=== PATIENT | female | born 1965 | race Caucasian/White ===

== ENCOUNTER 2017-02-24 15:29 | Emergency (ER) | payer MEDICAID, OTHER ==
[~2017-02-24] VITALS: Ht 165.1 cm; Wt 135.0 kg
[2017-02-24 15:35] VITALS: Ht 165.1 cm; Wt 135.0 kg
--- NOTE | 2017-02-24 15:58 | ERD ---
ER Documentation Chief Complaint Date/Time DATE: 02/24/17 TIME: 15:56 Chief Complaint FALL ON SIDEWALK THIS AM, BRUISING ON FOREHEAD AND NOSE HPI 51-year-old female presents with a trip and fall on the sidewalk around 1115 this morning complaining of head pain, nasal pain and bilateral ankle pain. She states that part of the sidewalk was not intact and she had an inversion injury to bilateral ankles, she complains of right medial ankle pain, generalized left ankle pain, she has swelling to her forehead. She denies any loss of consciousness, nausea, vomiting or blurry vision. ROS All systems reviewed and are negative except as per history of present illness. Medications Home Meds Active Scripts Ibuprofen* (Motrin*) 600 Mg Tab, 600 MG PO Q6, #30 TAB Prov:CORONA HONG PA-C 02/24/17 Allergies Allergies: Coded Allergies: No Known Allergy (Unverified , 02/24/17) PMhx/Soc Hx Alcohol Use: No Hx Substance Use: No Hx Tobacco Use: No Physical Exam Vitals Vital Signs Date Time Temp Pulse Resp B/P Pulse Ox O2 Delivery O2 Flow Rate FiO2 02/24/17 15:35 97.5 102 20 144/83 97 Physical Exam General: Well-developed, well-nourished. The patient appears in no acute distress. HEENT: Head is normocephalic, scalp is atraumatic, there is a hematoma to the frontal aspect approximately 4 cm, with overlying abrasion, the patient is swelling of the nasal bridge, no hematoma seen. No scleral icterus. Pupils are equal, round, and reactive. Oral mucous membranes are moist. No pharyngeal erythema. Neck: Supple. Nontender. No midline tenderness. Lungs: Clear to auscultation. Normal air movement. Heart: Regular rate and rhythm. S1 and S2 are normal. No murmurs, gallops, or rubs. Abdomen: Soft, nontender, nondistended. Bowel sounds are normoactive. Extremities: Swelling to right medial ankle, she is able to weight-bear partially, she has full range of motion with right ankle flexion and dorsiflexion. Left ankle is full range of motion flexion and dorsiflexion, no swelling, no bony deformities, she is fully weightbearing. Neurologic: Alert and oriented 3. No focal deficits. Skin: Normal turgor. No rash or lesions. Results 24 hrs Current Medications Medications (Trade) Dose Ordered Sig/Víctor Route PRN Reason Start Time Stop Time Status Last Admin Dose Admin Acetaminophen/ Hydrocodone Bitart (Kevin (5/325)) 1 tab ONCE ONCE PO 02/24/17 16:00 02/24/17 16:01 DC 02/24/17 15:55 PROCEDURE: CT Head without contrast. CLINICAL INDICATION: Head trauma with pain TECHNIQUE: The study was performed utilizing a GE 64-slice multidetector CT scanner. Direct spiral axial CT images of the brain were obtained from the vertex to the skull base without contrast. Coronal and sagittal reformat images are provided. The CTDI vol is 44.99 mGy and the DLP is 720.23 mGy-cm. The images were reviewed on a PACS workstation. COMPARISON: No prior studies are available for comparison. FINDINGS: Mild to moderate frontal scalp soft tissue swelling is seen. The ventricles and cortical sulci are within normal limits. The cheatham-white matter differentiation is maintained. No intra or extra-axial fluid collection or mass effect or shift in the midline structures is seen. The visualized paranasal sinuses, mastoid air cells, orbits, and calvarium are unremarkable. IMPRESSION: 1. No acute intracranial pathology. 2. Mild to moderate frontal scalp soft tissue swelling. RPTAT: HPNM Physician Nikolas Date Time Electronically viewed and signed by Physician Nikolas on 02/24/2017 16 :34 PROCEDURE: XR Ankle 3 Views. CLINICAL INDICATION: Ankle pain and trauma TECHNIQUE: AP, oblique and lateral views of the left ankle were performed. COMPARISON: None. FINDINGS: The osseous structures are intact. No destructive bony lesions are observed. Interosseous spaces appear normal. Small plantar calcaneal and Achilles insertion heel spurs are seen. Mild potential soft tissue swelling is seen surrounding the ankle . IMPRESSION: Mild potential soft tissue swelling surrounding the ankle. Ligamentous and tendinous injury is not excluded. If characterization of the ligaments and tendons is needed MRI is recommended. Plantar calcaneal and Achilles insertion heel spurs. If there is high clinical suspicion for bony traumatic injury, further evaluation with CT should be considered. RPTAT: AA .Brian Sims MD, MD Date Time Electronically viewed and signed by .Brian Sims MD, MD on 02/24/2017 18:00 PROCEDURE: XR nasal bones 3 Views CLINICAL INDICATION: Nose pain and trauma TECHNIQUE: AP and bilateral oblique views of the nasal bones were obtained COMPARISON: None available FINDINGS: The osseous structures are intact. No destructive bony lesions are observed. Visualized paranasal sinuses and mastoids are clear. Soft tissues are without gross abnormality. IMPRESSION: No visualized traumatic injury. If there is high clinical suspicion for traumatic injury, further evaluation with CT should be considered. RPTAT: AA .Brian Sims MD, MD Date Time Electronically viewed and signed by .Brian Sims MD, MD on 02/24/2017 17:58 Procedures/MDM ED course: Patient was given Kevin for pain. Patient was placed in a posterior ankle splint, right ankle, she is given crutches to be toe-touch weightbearing. Splint Assessment: Neurovascularly intact post splint placement with good fit. MDM: 51-year-old female presents with a traumatic injury presenting with facial hematoma, nasal hematoma, sprain on the left ankle. Patient has significant swelling, and therefore was placed in a splint to be follow-up with orthopedics. There is no evidence of an Achilles tendon rupture, an acute fracture. CT scan of the head shows no evidence of intracranial hemorrhage or skull fracture. She is neurologically intact, does not show any signs altered mental status and will be discharged home. Departure Diagnosis: Primary Impression: Ankle injury Additional Impressions: Nasal contusion Traumatic hematoma of face Condition: CORONA Mcgowan PA-C February 24, 2017 15:58
[2017-02-24] MEDS ORDERED: HYDROCODONE/APAP (5/325) TAB PO ONE (16:00)
--- NOTE | 2017-02-24 16:34 | RADRPT ---
PROCEDURE: CT Head without contrast. CLINICAL INDICATION: Head trauma with pain TECHNIQUE: The study was performed utilizing a GE 64-slice multidetector CT scanner. Direct spiral axial CT images of the brain were obtained from the vertex to the skull base without contrast. Cor onal and sagittal reformat images are provided. The CTDI vol is 44.99 mGy and the DLP is 720.23 mGy -cm. The images were reviewed on a PACS workstation. COMPARISON: No prior studies are available for comparison. FINDINGS: Mild to moderate frontal scalp soft tissue swelling is seen. The ventricles and cortical sulci are within normal limits. The cheatham-white matter differentiation is maintained. No intra or extra-axial fluid collection or mass effect or shift in the midline structures is seen. The visualized paranas al sinuses, mastoid air cells, orbits, and calvarium are unremarkable. IMPRESSION: 1. No acute intracranial pathology. 2. Mild to moderate frontal scalp soft tissue swelling. RPTAT: HPNM Physician Nikolas Date Time Electronically viewed and signed by Physician Nikolas on 02/24/2017 16:34 /
--- NOTE | 2017-02-24 17:58 | RADRPT ---
PROCEDURE: XR nasal bones 3 Views CLINICAL INDICATION: Nose pain and trauma TECHNIQUE: AP and bilateral oblique views of the nasal bones were obtained COMPARISON: None available FINDINGS: The osseous structures are intact. No destructive bony lesions are observed. Visualized paranasal s inuses and mastoids are clear. Soft tissues are without gross abnormality. IMPRESSION: No visualized traumatic injury. If there is high clinical suspicion for traumatic injury, further evaluation with CT should be consi dered. RPTAT: AA .Brian Sims MD, Date Time Electronically viewed and signed by .Brian Sims MD, on 02/24/2017 17:58 .P/
--- NOTE | 2017-02-24 18:00 | RADRPT ---
PROCEDURE: XR Ankle 3 Views. CLINICAL INDICATION: Ankle pain and trauma TECHNIQUE: AP, oblique and lateral views of the left ankle were performed. COMPARISON: None. FINDINGS: The osseous structures are intact. No destructive bony lesions are observed. Interosseous spaces a ppear normal. Small plantar calcaneal and Achilles insertion heel spurs are seen. Mild potential sof t tissue swelling is seen surrounding the ankle . IMPRESSION: Mild potential soft tissue swelling surrounding the ankle. Ligamentous and tendinous injury is not e xcluded. If characterization of the ligaments and tendons is needed MRI is recommended. Plantar calcaneal and Achilles insertion heel spurs. If there is high clinical suspicion for bony traumatic injury, further evaluation with CT should be considered. RPTAT: AA .Brian Sims MD, Date Time Electronically viewed and signed by .Brian Sims MD, MD on 02/24/2017 18:00 .P/
[2017-02-24] MEDS ORDERED: IBUP-1542 PO (18:28)
[2017-02-24 19:27] VITALS: BP 140/80; PULSE 78; RESP 18
== END 2017-02-24 19:27 | disposition home or self-care (01) ==
LOC: FTE 15:29
DX: S99.911A Unspecified injury of right ankle, initial encounter (principal); S99.912A Unspecified injury of left ankle, initial encounter; S00.33XA Contusion of nose, initial encounter; S00.83XA Contusion of other part of head, initial encounter; W10.1XXA Fall (on)(from) sidewalk curb, initial encounter; Y92.9 Unspecified place or not applicable
CPT/HCPCS: 29515; 70160; 70450; 73610; Z7502; Z7610